=== PATIENT | male | born 1955 | race Caucasian/White ===

== ENCOUNTER 2016-08-15 18:38 | Observation (INO) | payer BC ==
[2016-08-15] MEDS ORDERED: Sodium Chloride 0.9% 10 ML Syringe FLUSH PRN (18:39)
[2016-08-15] MEDS ORDERED: Zolpidem 5 MG Tab PO PRN (18:45)
--- NOTE | 2016-08-15 18:56 | PCM.HP ---
H&P History of Present Illness - General Date of Service: 08/15/16 Admit Problem/Dx: Admission Diagnosis/Problem Admission Diagnosis/Problem Small bowel obstruction Source of Information: Patient History Limitations: Reports: No limitations - History of Present Illness Initial Comments - Free Text/Narative: Patient is a 61 year old male is being admitted because of small bowel obstruction. Patient started having periumbilical pain 4-5 days prior today. non radiating. most of the time pain is at 2/10 gets aggravated to 5/10. no nausea nor vomiting. His last good bowel movement was last 5 days ago as well though he had watery stools yesterday and this morning. no fever nor chills. No cough nor shortness of breath. Was seen in clinic today, CBC and CMP, amylase and lipase were normal. CT scan showed small bowel obstruction, clinician spoke with General surgeon integrity consultant and advised local admission here for observation. patient has only on abdominal surgery before when he had appendectomy years ago. Middle Abdomen Pain Score (Numeric/FACES): 0 - Related Data Allergies/Adverse Reactions: Allergies Allergy/AdvReac Type Severity Reaction Status Date / Time No Known Allergies Allergy Verified 08/16/16 01:31 Home Medications: Home Meds Aspirin/Calcium Carbonate/Mag [Aspirin Buffered 325 mg Tab] 325 mg PO Q48H 08/15 [History] H&P Review of Systems - Review of Systems: Review Of Systems: See Below General: Reports: no symptoms HEENT: Reports: no symptoms Pulmonary: Reports: no symptoms Cardiovascular: Reports: no symptoms Gastrointestinal: Reports: Abdominal pain, Other (no bloody sotols) Genitourinary: Reports: no symptoms Musculoskeletal: Reports: no symptoms Skin: Reports: no symptoms Neurological: Reports: no symptoms Exam - Exam Exam: See Below - Vital Signs Vital Signs: Last Vital Signs Temp 36.7 C 08/15/16 18:39 Pulse 65 08/15/16 18:39 Resp 20 08/15/16 18:39 BP 144/88 H 08/15/16 18:39 Pulse Ox 99 08/15/16 18:39 - Exam General: alert, oriented Neck: supple Lungs: Clear to auscultation, Normal respiratory effort Cardiovascular: regular rate, regular rhythm Abdomen: soft, other (distended; tenderness on periumbilical and bilateral lower quadrants; no rebound tenderness) - Patient Data Result Diagrams: 08/16/16 05:25 08/16/16 05:25 *Q Meaningful Use (ADM) - VTE *Q VTE Criteria *Q: - Stroke *Q Stroke Criteria *Q: - AMI *Q AMI Criteria *Q: - Problem List (1) Small bowel obstruction SNOMED Code(s): 242394929 ICD Code: K56.69 - OTHER INTESTINAL OBSTRUCTION Status: Acute Problem List Initiated/Reviewed/Updated: Yes Orders Last 24hrs: Active Orders 24 hr Category Date Time Status Patient Status [ADT] Routine ADT 08/15/16 18:39 Active Communication Order [RC] ROUTINE Care 08/15/16 18:42 Active Intake and Output [RC] QSHIFT Care 08/15/16 18:40 Active Oxygen Therapy [RC] PRN Care 08/15/16 18:39 Active Peripheral IV Care [RC] . DIRECTED Care 08/15/16 18:41 Active Up With Assistance [RC] ASDIRECTED Care 08/15/16 18:39 Active VTE/DVT Education [RC] PER UNIT ROUTINE Care 08/15/16 18:39 Active Vital Signs [RC] Q4H Care 08/15/16 18:39 Active Nothing per Oral Now Diet [DIET] Diet 08/15/16 Dinner Active BASIC METABOLIC PANEL,BMP [CHEM] Routine Lab 08/16/16 06:00 Ordered CBC WITH AUTO DIFF [HEME] Routine Lab 08/16/16 06:00 Ordered Enoxaparin [Lovenox] Med 08/16/16 09:00 Ordered 40 mg SUBCUT DAILY LORazepam [Ativan] Med 08/15/16 18:45 Ordered 0.5 mg PO Q8H PRN Sodium Chloride 0.9% [Normal Saline] 1,000 ml Med 08/15/16 18:45 Ordered IV ASDIRECTED Sodium Chloride 0.9% [Saline Flush] Med 08/15/16 18:39 Ordered 10 ml FLUSH ASDIRECTED PRN Zolpidem [Ambien] Med 08/15/16 18:45 Ordered 5 mg PO BEDTIME PRN Nasogastric Orogastric Tube Insertion [OM.PC] Routine Oth 08/15/16 18:42 Ordered Peripheral IV Insertion Adult [OM.PC] Routine Oth 08/15/16 18:39 Ordered Resuscitation Status Routine Resus Stat 08/15/16 18:39 Ordered Medication Orders Enoxaparin Sodium (Lovenox) 40 mg SUBCUT DAILY [facility] Sodium Chloride (Normal Saline) 1,000 mls @ 125 mls/hr IV ASDIRECTED [facility] Lorazepam (Ativan) 0.5 mg PO Q8H PRN PRN Reason: Anxiety Sodium Chloride (Saline Flush) 10 ml FLUSH ASDIRECTED PRN PRN Reason: Keep Vein Open Zolpidem Tartrate (Ambien) 5 mg PO BEDTIME PRN PRN Reason: Insomnia Assessment/Plan Comment:: 1. small bowel obstruction - NPO - normal saline 125ml/hr - NGT insertion - measure abdominal girth and monitor daily - repeat CBC and lytes 2. DVT prophylaxis - Lovenox 3. code status: full
[2016-08-15] MEDS: Sodium Chloride 0.9% 1,000 ML IV SCH (19:50)
[2016-08-15] MEDS ORDERED: LORazepam 2 MG/ML Syringe IVPUSH ONE (19:52)
[2016-08-15] MEDS: LORazepam 0.5 MG Tab PO PRN (21:57)
[2016-08-15] MEDS ORDERED: Morphine 2 MG/ML Syringe IVPUSH PRN (23:18)
[2016-08-16] MEDS: Sodium Chloride 0.9% 1,000 ML IV SCH ×2 (03:51→16:08)
[2016-08-16 06:25] LABS: CHLORIDE,CL 105 mmol/L (101-111); SODIUM,NA 137 mmol/L (135-145)
[2016-08-16] MEDS: Enoxaparin 40 MG/0.4 ML Syringe SUBCUT SCH (09:59)
--- NOTE | 2016-08-16 10:09 | PCM.PN ---
- General Info Date of Service: 08/16/16 Admission Dx/Problem (Free Text): Admission Diagnosis/Problem Admission Diagnosis/Problem Small bowel obstruction and heart Burn Subjective Update: Pt has discomfort with NG tube, complaining of swallowing with NG in place, No nause or Vomiting, Passing gas, No BM after admission, No significant NG output Functional Status: Reports: pain controlled, ambulating, urinating, other (He is NPO for SBO) - Review of Systems General: Denies: fever, malaise, chills, night sweats HEENT: Denies: ear pain, eye pain, headaches, sinus congestion, sore throat, rhinitis, visual changes Pulmonary: Denies: shortness of breath, cough, sputum, hemoptysis, wheezing Cardiovascular: Denies: chest pain, dyspnea on exertion, lightheadedness Gastrointestinal: Reports: Abdominal pain (mild), Diarrhea (prior to admissin ( only water no stool)). Denies: Constipation, Melena, Nausea, Vomiting Genitourinary: Denies: dysuria, frequency, burning, urgency, incontinence, flank pain Musculoskeletal: Denies: neck pain, shoulder pain, back pain, foot pain, joint swelling Skin: Denies: cyanosis, jaundice, bruising, pruritis, rash Neurological: Denies: confusion, headache, tingling, tremors, change in speech Psychiatric: Denies: confusion, anxiety - Patient Data Vitals - most recent: Last Vital Signs Temp 37.1 C 08/16/16 06:52 Pulse 87 08/16/16 06:52 Resp 20 08/16/16 06:52 BP 139/76 08/16/16 06:52 Pulse Ox 99 08/16/16 06:52 Weight - most recent: 88.723 kg I&O - last 24 hours: Intake & Output 08/15/16 08/16/16 08/16/16 22:59 06:59 14:59 Intake Total 1000 400 Output Total 300 800 Balance 700 -400 Lab Results last 24 hrs: Laboratory Results - last 24 hr 08/16/16 08/16/16 Range/Units 05:25 05:25 WBC 6.1 (5.0-10.0) 10^3/uL RBC 4.53 L (4.6-6.2) 10^6/uL Hgb 14.2 (14.0-18.0) g/dL Hct 42.8 (40.0-54.0) % MCV 94.5 (80-100) fL MCH 31.3 (27.0-34.0) pg MCHC 33.2 (33.0-35.0) g/dL Plt Count 184 (150-450) 10^3/uL Neut % (Auto) 73.4 (42.2-75.2) % Lymph % (Auto) 14.5 L (20.5-50.1) % [place] % (Auto) 10.3 H (2-8) % Eos % (Auto) 1.6 (1.0-3.0) % Baso % (Auto) 0.2 (0.0-1.0) % Sodium 137 (135-145) mmol/L Potassium 3.8 (3.6-5.0) mmol/L Chloride 105 (101-111) mmol/L Carbon Dioxide 22.0 (21.0-31.0) mmol/L Anion Gap 13.8 BUN 12 (7-18) mg/dL Creatinine 0.8 (0.6-1.3) mg/dL Est Cr Clr Drug Dosing 105.89 mL/min Estimated GFR (MDRD) > 60 Glucose 83 (74-105) mg/dL Calcium 8.6 (8.4-10.2) mg/dl Med Orders - Current: Current Medications Enoxaparin Sodium (Lovenox) 40 mg SUBCUT DAILY [facility] Last Admin: 08/16/16 09:59 Dose: 40 mg Sodium Chloride (Normal Saline) 1,000 mls @ 125 mls/hr IV ASDIRECTED [facility] Last Admin: 08/16/16 03:51 Dose: 125 mls/hr Lorazepam (Ativan) 0.5 mg PO Q8H PRN PRN Reason: Anxiety Last Admin: 08/15/16 21:57 Dose: 0.5 mg Morphine Sulfate (Morphine) 1 mg IVPUSH Q8H PRN PRN Reason: Pain Last Admin: 08/15/16 23:33 Dose: 1 mg Sodium Chloride (Saline Flush) 10 ml FLUSH ASDIRECTED PRN PRN Reason: Keep Vein Open Last Admin: 08/15/16 19:50 Dose: 10 ml Zolpidem Tartrate (Ambien) 5 mg PO BEDTIME PRN PRN Reason: Insomnia Discontinued Medications Lorazepam (Ativan) 1 mg IVPUSH ONETIME ONE Stop: 08/15/16 19:53 Last Admin: 08/15/16 20:06 Dose: 1 mg - Exam Quality Assessment: DVT prophylaxis. No: supplemental oxygen, urine catheter, skin breakdown General: alert, oriented, cooperative, no acute distress HEENT: Pupils equal Neck: supple, no JVD, no thyromegaly. No: lymphadenopathy, thyromegaly Lungs: Clear to auscultation, Normal respiratory effort. No: Crackles, Wheezing Cardiovascular: regular rate, regular rhythm, no murmurs (Male) Exam: Deferred Back Exam: normal inspection, full range of motion Extremities: no edema, no clubbing, no calf tenderness Skin: warm, dry, intact Neurological: no new focal deficit Psy/Mental Status: alert, normal affect, normal mood - Problem List Review Problem List Initiated/Reviewed/Updated: Yes - My Orders Last 24 Hours: My Active Orders 08/15/16 23:18 Morphine 1 mg IVPUSH Q8H PRN - Plan Plan:: This is a 61 Y/O M with no significant past medical history except appendectomy few years ago, admitted with perumbilical Pain started 5 days ago. started one days after eating Beef Jerky. he also had severe heart burn 3 days ago and had purely water diarrhea ( clear in color), no blood and had about few episodes before getting admitted. [facility] and had CT with contrast for Abd and showed small bowel obstruction, Dr. Alves discussed his case with [facility] Fr. Hernandez and recommed local admission with NPO and NGT. 1. Small bowel obstruction - NG out put is not that significant, and he is passing gas has positive BS -Will clamp NG and remove if no significant residue -Will advance diet to clear Liquid - Continue normal saline at 125ml/hr 2. DVT prophylaxis - Lovenox 3. code status: full
[2016-08-17] MEDS: Sodium Chloride 0.9% 1,000 ML IV SCH ×2 (04:23→17:52)
[2016-08-17] MEDS: Enoxaparin 40 MG/0.4 ML Syringe SUBCUT SCH (09:34)
--- NOTE | 2016-08-17 10:12 | PCM.PN ---
- General Info Date of Service: 08/17/16 Admission Dx/Problem (Free Text): Admission Diagnosis/Problem Admission Diagnosis/Problem Small bowel obstruction and heart Burn Subjective Update: Pt is feeling better today, NGT removed yesterday afternoon, tolerating clear liquid diet, had watery BM last night, will advance diet to full liquid , No nause or Vomiting, Passing gas Functional Status: Reports: pain controlled, tolerating diet (clear liquid), ambulating, urinating - Review of Systems General: Reports: other (tolerating clear liquid). Denies: fever, weakness, chills HEENT: Denies: headaches, sinus congestion, sore throat, visual changes Pulmonary: Denies: shortness of breath, cough, sputum, wheezing Cardiovascular: Denies: chest pain, dyspnea on exertion, edema, lightheadedness Gastrointestinal: Reports: Abdominal pain (has improved). Denies: Difficulty swallowing, Melena, Nausea, Vomiting Genitourinary: Denies: dysuria, burning, urgency, hematuria, flank pain Musculoskeletal: Denies: shoulder pain, hand pain, leg pain, foot pain Skin: Denies: cyanosis, jaundice, diaphoresis Neurological: Denies: confusion, tingling, tremors Psychiatric: Denies: confusion, anxiety - Patient Data Vitals - most recent: Last Vital Signs Temp 37.4 C 08/17/16 07:00 Pulse 55 L 08/17/16 07:00 Resp 20 08/17/16 07:00 BP 120/68 08/17/16 07:00 Pulse Ox 97 08/17/16 07:00 Weight - most recent: 88.723 kg I&O - last 24 hours: Intake & Output 08/16/16 08/17/16 08/17/16 22:59 06:59 14:59 Intake Total 1000 1133 Output Total 600 Balance 400 1133 Med Orders - Current: Current Medications Enoxaparin Sodium (Lovenox) 40 mg SUBCUT DAILY [facility] Last Admin: 08/17/16 09:34 Dose: Not Given Sodium Chloride (Normal Saline) 1,000 mls @ 75 mls/hr IV ASDIRECTED [facility] Last Admin: 08/17/16 04:23 Dose: 75 mls/hr Lorazepam (Ativan) 0.5 mg PO Q8H PRN PRN Reason: Anxiety Last Admin: 08/15/16 21:57 Dose: 0.5 mg Morphine Sulfate (Morphine) 1 mg IVPUSH Q8H PRN PRN Reason: Pain Last Admin: 08/15/16 23:33 Dose: 1 mg Sodium Chloride (Saline Flush) 10 ml FLUSH ASDIRECTED PRN PRN Reason: Keep Vein Open Last Admin: 08/15/16 19:50 Dose: 10 ml Zolpidem Tartrate (Ambien) 5 mg PO BEDTIME PRN PRN Reason: Insomnia Discontinued Medications Sodium Chloride (Normal Saline) 1,000 mls @ 125 mls/hr IV ASDIRECTED [facility] Last Admin: 08/16/16 03:51 Dose: 125 mls/hr Lorazepam (Ativan) 1 mg IVPUSH ONETIME ONE Stop: 08/15/16 19:53 Last Admin: 08/15/16 20:06 Dose: 1 mg - Exam Quality Assessment: DVT prophylaxis. No: supplemental oxygen, urine catheter General: alert, oriented, cooperative, no acute distress HEENT: Pupils equal, Mucous membr. moist/pink Neck: supple. No: no JVD, no thyromegaly, lymphadenopathy Lungs: Clear to auscultation, Normal respiratory effort. No: Crackles, Wheezing Cardiovascular: regular rate, regular rhythm, no murmurs Abdomen: bowel sounds present, soft, no tenderness, no distension. No: rebound , guarding Back Exam: normal inspection, full range of motion Extremities: no edema, no clubbing, no calf tenderness Skin: warm, dry, intact Neurological: no new focal deficit Psy/Mental Status: alert, normal affect, normal mood - Problem List Review Problem List Initiated/Reviewed/Updated: Yes - My Orders Last 24 Hours: My Active Orders 08/16/16 15:30 Sodium Chloride 0.9% [Normal Saline] 1,000 ml IV ASDIRECTED 08/17/16 Breakfast Full Liquid Diet [DIET] - Plan Plan:: This is a 61 Y/O M with no significant past medical history except appendectomy few years ago, admitted with periumbilical Pain started 5 days ago. started one days after eating Beef Jerky. he also had severe heart burn 3 days ago and had purely water diarrhea ( clear in color), no blood and had about few episodes before getting admitted. [facility] and had CT with contrast for Abd and showed small bowel obstruction, Dr. Alves discussed his case with [facility] Fr. Hernandez and recommend local admission with NPO and NGT. 1. Small bowel obstruction - NGT removed and he is passing gas, has positive BS and had a watery BM last night ( but this AM had some soild along with liquid) --Will change to Full liquid, tolerated clear Liquid - Continue normal saline at 75 ml/hr -if full liquid tolerated well, then will advance Semi-solid and see if has another BM today or Not -Likely will be able to go home tomorrow, if he tolerates diet and have a BM 2. DVT prophylaxis - Lovenox 3. code status: full
[2016-08-17] MEDS: LORazepam 0.5 MG Tab PO PRN (23:01)
[2016-08-18] MEDS: Enoxaparin 40 MG/0.4 ML Syringe SUBCUT SCH (10:16)
--- NOTE | 2016-08-18 11:01 | PCM.DCSUM1 ---
Discharge Summary - Hospital Course HPI Initial Comments: Patient is a 61 year old male is being admitted because of small bowel obstruction. Patient started having periumbilical pain 4-5 days prior today. non radiating. most of the time pain is at 2/10 gets aggravated to 5/10. no nausea nor vomiting. His last good bowel movement was last 5 days ago as well though he had watery stools yesterday and this morning. no fever nor chills. No cough nor shortness of breath. Was seen in clinic today, CBC and CMP, amylase and lipase were normal. CT scan showed small bowel obstruction, clinician spoke with General surgeon correctional nurse and advised local admission here for observation. patient has only on abdominal surgery before when he had appendectomy years ago. - Discharge Data Discharge Date: 08/18/16 Discharge Disposition: Home, Self-Care 01 Condition: Good - Patient Summary/Data Hospital Course: 1. Small bowel obstruction -pt responded well to NG and NPO with IV fluids. NG was removed 48 hours ago and he cont to tolerated diet and having flatus/BMs. -pt last colonoscopy was in 2006 - due to repeat at any rate - also h/o ruptured appendex - suspect this is source of his adhesions 2.enlarged prostate noted on CT scan- 5 cm - consider urology consult/ check PSA - will defer to PCP d/c home f/u with Dr. Galdamez - Patient Instructions Diet: Regular Diet as Tolerated Activity: As Tolerated Driving: May Drive Today Showering/Bathing: May Shower Notify Provider of: Fever, Increased Pain, Nausea and/or Vomiting Other/Special Instructions: f/u with Dr. Galdamez. Consider referral to Urologyist - defer to Dr. Galdamez - Discharge Plan Home Medications: Home Meds Aspirin/Calcium Carbonate/Mag [Aspirin Buffered 325 mg Tab] 325 mg PO Q48H 08/15 [History] Patient Handouts: Small Bowel Obstruction - General Info Date of Service: 08/18/16 Subjective Update: pt states he is still having BM- no blood in stool. no n/v. no abd pain- tolerating diet- feels ready for d/c home Functional Status: Reports: pain controlled, tolerating diet, ambulating, urinating - Review of Systems General: Reports: no symptoms HEENT: Reports: no symptoms Pulmonary: Reports: no symptoms Cardiovascular: Reports: no symptoms Gastrointestinal: Reports: No symptoms - Patient Data Vitals - Most Recent: Last Vital Signs Temp 37.2 C 08/18/16 07:32 Pulse 56 L 08/18/16 07:32 Resp 20 08/18/16 07:32 BP 122/80 08/18/16 07:32 Pulse Ox 100 08/18/16 07:32 Weight - Most Recent: 88.723 kg I&O - Last 24 hours: Intake & Output 08/17/16 08/18/16 08/18/16 22:59 06:59 14:59 Intake Total 1611 75 565 Balance 1611 75 565 Med Orders - Current: Current Medications Enoxaparin Sodium (Lovenox) 40 mg SUBCUT DAILY [facility] Last Admin: 08/18/16 10:16 Dose: Not Given Sodium Chloride (Normal Saline) 1,000 mls @ 75 mls/hr IV ASDIRECTED [facility] Last Admin: 08/17/16 17:52 Dose: 75 mls/hr Lorazepam (Ativan) 0.5 mg PO Q8H PRN PRN Reason: Anxiety Last Admin: 08/17/16 23:01 Dose: 0.5 mg Morphine Sulfate (Morphine) 1 mg IVPUSH Q8H PRN PRN Reason: Pain Last Admin: 08/15/16 23:33 Dose: 1 mg Sodium Chloride (Saline Flush) 10 ml FLUSH ASDIRECTED PRN PRN Reason: Keep Vein Open Last Admin: 08/15/16 19:50 Dose: 10 ml Zolpidem Tartrate (Ambien) 5 mg PO BEDTIME PRN PRN Reason: Insomnia Discontinued Medications Sodium Chloride (Normal Saline) 1,000 mls @ 125 mls/hr IV ASDIRECTED [facility] Last Admin: 08/16/16 03:51 Dose: 125 mls/hr Lorazepam (Ativan) 1 mg IVPUSH ONETIME ONE Stop: 08/15/16 19:53 Last Admin: 08/15/16 20:06 Dose: 1 mg - Exam General: Reports: alert, oriented, cooperative Lungs: Reports: Clear to auscultation, Normal respiratory effort Cardiovascular: Reports: regular rate, regular rhythm Abdomen: Reports: bowel sounds present, soft, no tenderness, no distension Extremities: Reports: no edema Skin: Reports: warm Psy/Mental Status: Reports: alert, normal affect *Q Meaningful Use (DIS) - VTE *Q VTE Criteria *Q: - Stroke *Q Stroke Criteria *Q: - AMI *Q AMI Criteria *Q:
[2016-08-18 11:14] VITALS: BP 131/78
== END 2016-08-18 11:45 ==
LOC: DL.MS 18:38 → INTOOBSV 18:38
PROVIDERS: ADMIT Internal Medicine; ATTEND Internal Medicine
DX: K56.69 Other intestinal obstruction (principal); N40.0 Benign prostatic hyperplasia without lower urinary tract symptoms; Z79.82 Long term (current) use of aspirin; Z79.899 Other long term (current) drug therapy; R19.7 Diarrhea, unspecified; R10.33 Periumbilical pain
CPT/HCPCS: 36415; 74177; 80048; 85025; 96361; 96372; 96374; 96375; A9270; G0378; G0379; J1650; J2060; J2270; J7030; J7050; Q9967